=== PATIENT | female | born 1960 | race Caucasian/White ===

== ENCOUNTER 2016-12-23 08:33 | Day surgery (SDC) | payer MEDICAID ==
[2016-12-19 12:01] LABS: BASOPHILS # (AUTO) 0.3 K/uL (0.00-0.22); BASOPHILS % (AUTO) 2.9 % (0.0-2.0); EOSINOPHILS # (AUTO) 0.2 K/uL (0-0.4); HEMATOCRIT 39.7 % (36-48); HEMOGLOBIN 13.5 g/dL (12.0-16.0); LYMPHOCYTES # (AUTO) 3.7 K/uL (2.5-16.5); LYMPHOCYTES % (AUTO) 41.5 % (20.5-51.1); MEAN CORPUSCULAR HEMOGLOBIN 33 pg (27-31); MEAN CORPUSCULAR HGB CONC 34 g/dL (33-37); MEAN CORPUSCULAR VOLUME 95 fL (80-94); MONOCYTES # (AUTO) 0.6 K/uL (0.8-1.0); MONOCYTES % (AUTO) 7.1 % (1.7-9.3); NEUTROPHILS # (AUTO) 4.2 K/uL (1.8-7.7); NEUTROPHILS % (AUTO) 46.5 % (42.2-75.2); PLATELET COUNT (AUTO) 212 K/uL (140-450); RED BLOOD CELL COUNT(AUTO) 4.17 MIL/uL (4.20-5.40); RED CELL DISTRIBUTION WIDTH 12.5 % (11.6-13.7)
[2016-12-19 12:56] LABS: ANION GAP 10.2 (8-16); CALCIUM 8.4 mg/dL (8.5-10.1); POTASSIUM 4.2 mmol/L (3.5-5.1)
[~2016-12-23] VITALS: Ht 172.7 cm; Wt 72.6 kg
[~2016-12-23 08:33] MED LIST: ASPI-1093 PO; ATOR20TA PO; DEXL60EC5 PO; VIC PO; ZOLP5TAB7 PO
[2016-12-23] MEDS ORDERED: DEXL60EC5 PO (09:24)
[2016-12-23] MEDS ORDERED: TAMO20TA3 PO (09:24)
[2016-12-23] MEDS ORDERED: BACL20TA4 PO (09:24)
[2016-12-23] MEDS ORDERED: SIMV5TAB1 PO (09:24)
[2016-12-23] MEDS ORDERED: VAS2.5 PO (09:24)
[2016-12-23] MEDS ORDERED: NIFE30TE5 PO (09:24)
[2016-12-23] MEDS ORDERED: EFFXR75 PO (09:24)
[2016-12-23] MEDS ORDERED: BUPIVACAINE-MPF/EPI 0.25% 30 ML VIAL INJ ONE (09:43)
[2016-12-23] MEDS ORDERED: LIDOCAINE 1% 50 ML ONE (09:43)
[2016-12-23] MEDS ORDERED: PROPOFOL 200 MG/20 ML VIAL IV ONE (10:03)
[2016-12-23] MEDS ORDERED: MIDAZOLAM 2 MG/2 ML VIAL ONE (10:13)
[2016-12-23] MEDS ORDERED: fentaNYL 0.05 MG/ML VIAL ONE (10:13)
[2016-12-23] MEDS ORDERED: HYDROmorphone 1 MG/ML AMP IVP PRN ×2 (10:20→10:55)
[2016-12-23] MEDS ORDERED: ONDANSETRON 4 MG/2 ML VIAL IVP PRN (10:20)
[2016-12-23] MEDS ORDERED: ACETAMINOPHEN 325 MG TAB PO PRN (10:55)
[2016-12-23] MEDS ORDERED: HYDROcodone/APAP 5/325 MG 1 TAB TAB PO PRN (10:55)
[2016-12-23] MEDS ORDERED: ONDANSETRON 4 MG/2 ML VIAL IV PRN (10:55)
[2016-12-23] MEDS ORDERED: MORPHINE SULFATE 4 MG/ML SYR IV PRN (10:55)
[2016-12-23] MEDS ORDERED: NACL 0.9% 1,000 ML IV SCH (10:55)
== END 2016-12-23 11:45 | disposition home or self-care (01) ==
LOC: MDS 08:33 → MMU 08:34 → MDS 11:45
PROVIDERS: ATTEND Surgery
DX: Z45.2 Encounter for adjustment and management of vascular access device (principal); I12.9 Hypertensive chronic kidney disease with stage 1 through stage 4 chronic kidney disease, or unspecified chronic kidney disease; E11.22 Type 2 diabetes mellitus with diabetic chronic kidney disease; N18.9 Chronic kidney disease, unspecified; I25.119 Atherosclerotic heart disease of native coronary artery with unspecified angina pectoris; E78.5 Hyperlipidemia, unspecified; K21.9 Gastro-esophageal reflux disease without esophagitis; J45.909 Unspecified asthma, uncomplicated; M19.90 Unspecified osteoarthritis, unspecified site; D64.9 Anemia, unspecified; F03.90 Unspecified dementia, unspecified severity, without behavioral disturbance, psychotic disturbance, mood disturbance, and anxiety; Z79.899 Other long term (current) drug therapy; F17.210 Nicotine dependence, cigarettes, uncomplicated; Z85.3 Personal history of malignant neoplasm of breast; Z82.49 Family history of ischemic heart disease and other diseases of the circulatory system; Z90.11 Acquired absence of right breast and nipple; Z98.51 Tubal ligation status; Z98.890 Other specified postprocedural states
CPT/HCPCS: 36415; 36590; 71010; 80048; 85025; 88300; 93005; J0690; J2001; J2250; J2704; J3010; J3490; J7060; J7120